=== PATIENT | female | born 1950 | race Caucasian/White ===

== ENCOUNTER → 2018-02-06 | Outpatient (CLI) | payer OTHER ==
[~2018-02-06] MED LIST: AMBIEN 5 MG TABL5 MG PO; COLACE 100 MG100 MG PO; ESTRADIOL 1 MG T1 M1 PO; FLEXERIL PO; HYDROCHLOROTHIA25 M2 PO; IRON325 PO; LEXAPRO20 MG PO; MOBIC15 MG PO; NEURONTIN 300300 M1 PO; PERCOCET 10-321 EACH PO; POTASSIUM20 PO; ROPINIROLE HCL2 MG PO; TOPROL XL25 MG PO; UNICOMPLEX M TA1 TA1 PO; VENTOLIN HFA 1818 GM INH; VITAMIN B-12500 MCG PO; VITAMINC500 PO
== END ==
LOC: M.LAB 14:13
DX: Z01.812 Encounter for preprocedural laboratory examination (principal)